=== PATIENT | female | born 1950 | race Caucasian/White ===

== ENCOUNTER 2016-04-05 13:15 | Outpatient (CLI) | payer BC | END 2016-04-05 13:16 | disposition home or self-care (01) | DX: Z12.31 Encounter for screening mammogram for malignant neoplasm of breast (principal) ==

== ENCOUNTER 2016-04-19 09:40 | Outpatient (CLI) | payer BC | END 2016-04-19 09:41 | disposition home or self-care (01) | DX: C73 Malignant neoplasm of thyroid gland (principal); E89.0 Postprocedural hypothyroidism; Z79.899 Other long term (current) drug therapy; E11.9 Type 2 diabetes mellitus without complications; Z00.00 Encounter for general adult medical examination without abnormal findings; Z12.11 Encounter for screening for malignant neoplasm of colon; Z12.12 Encounter for screening for malignant neoplasm of rectum ==

== ENCOUNTER 2016-05-13 11:30 | Outpatient (CLI) | payer BC | END 2016-05-13 11:31 | disposition home or self-care (01) | DX: N30.01 Acute cystitis with hematuria (principal) ==

== ENCOUNTER 2017-09-05 10:20 | Outpatient (CLI) | payer BC ==
[2017-09-05 10:43] LABS: BASOPHILS % (AUTO) 0.3 %; EOSINOPHILS # (AUTO) 0.1 10^3/uL (0.0-0.7); HGB - HEMOGLOBIN 14.5 g/dL (12.0-16.0); LYMPHOCYTES # (AUTO) 1.2 10^3/uL (1.5-3.5); LYMPHOCYTES % (AUTO) 26.7 %; MEAN CORPUSCULAR HEMOGLOBIN 30.9 pg (27.0-31.0); MEAN CORPUSCULAR HGB CONC 33.2 g/dL (32.0-36.0); MEAN CORPUSCULAR VOLUME 93.3 fL (81.0-99.0); MEAN PLATELET VOLUME 7.8 fL (7.9-10.8); MONOCYTES # (AUTO) 0.3 10^3/uL (0.0-1.0); MONOCYTES % (AUTO) 6.4 %; NEUTROPHILS # (AUTO) 2.9 10^3/uL (1.5-6.6); NEUTROPHILS % (AUTO) 64.6 %; PLT - PLATELET COUNT 164 10^3/uL (130-450); RED CELL DISTRIBUTION WIDTH 14.3 % (12.0-15.0); WHITE BLOOD COUNT 4.5 x10^3/uL (4.8-10.8)
[2017-09-05 10:59] LABS: HB2 TOTAL 16.4 g/dL; HEMOGLOBIN A1C 0.74 g/dL; HEMOGLOBIN A1C % 6.3 % (4.6-6.2)
[2017-09-05 11:03] LABS: ALBUMIN 4.1 g/dL (3.2-5.5); ALBUMIN/GLOBULIN RATIO 1.1 (1.0-2.2); ALKALINE PHOSPHATASE 83 IU/L (42-121); ALT ALANINE AMINOTRANSFERASE 29 IU/L (10-60); AST ASPARTATE AMINOTRANSFERASE 26 IU/L (10-42); BILIRUBIN,TOTAL 0.6 mg/dL (0.2-1.0); BUN - BLOOD UREA NITROGEN 17 mg/dL (6-20); CALCIUM 9.3 mg/dL (8.5-10.3); CARBON DIOXIDE - CO2 28 mmol/L (21-32); CHLORIDE 101 mmol/L (101-111); CHOL/HDL RATIO 3.7 (<4.4); CHOLESTEROL 207 mg/dL; CREATININE 0.8 mg/dL (0.4-1.0); GFR - MDRD 72 (>89); GLUCOSE 158 mg/dL (70-100); HDL CHOLESTEROL 56 mg/dL; LDL CHOLESTEROL,CALCULATED 124 mg/dL; LDL/HDL RATIO 2.2 (<4.4); SODIUM 137 mmol/L (135-145); VLDL CHOLESTEROL 27 mg/dL
[2017-09-05 11:16] LABS: THYROID STIMULATING HORMONE 6.05 uIU/mL (0.34-5.60)
[2017-09-05 11:18] LABS: FREE T4 (FREE THYROXINE) 0.64 ng/dL (0.58-1.64)
[2017-09-07 11:40] LABS: THYROGLOBULIN <0.1 ng/mL
== END 2017-09-05 10:21 | disposition home or self-care (01) ==
LOC: LAB 10:20
PROVIDERS: ATTEND Internal Medicine
DX: E11.9 Type 2 diabetes mellitus without complications (principal); C73 Malignant neoplasm of thyroid gland; E03.9 Hypothyroidism, unspecified; Z13.1 Encounter for screening for diabetes mellitus; Z79.899 Other long term (current) drug therapy
CPT/HCPCS: 36415; 80053; 80061; 82607; 83036; 83721; 84432; 84439; 84443; 84481; 85025; 86800

== ENCOUNTER 2017-09-20 13:53 | Outpatient (CLI) | payer BC ==
--- NOTE | 2017-09-22 13:29 | Mammography Report ---
Procedure Date: 09/20/2017 Accession Number: [id number] / [id number] Procedure: MGS - Screening Mammo Dig Bilat CPT Code: FULL RESULT: EXAM: Screening Mammo Dig Bilat DATE: 09/20/2017 2:08 PM CLINICAL HISTORY: 66-year-old nulliparous patient for screening, history of benign biopsy TECHNIQUE: Bilateral CC and MLO views were obtained. COMPARISON: 04/05/2016, 03/10/2015, 10/31/2008 FINDINGS: The breasts demonstrate scattered fibroglandular densities bilaterally. Coarse and punctate, typically benign calcifications are present. Small circumscribed nodules are stable. No suspicious masses, clustered microcalcifications, or regions of architectural distortion are identified. IMPRESSION: Benign findings RECOMMENDATION: Routine annual screening unless otherwise clinically indicated. BIRADS CATEGORY 2: Benign findings STANDARD QUALIFYING STATEMENTS: 1. This examination was reviewed with the aid of Computer-Aided Detection (CAD). 2. A negative or benign imaging report should not delay biopsy if clinically suspicious findings are present. Consider surgical consultation if warrented. More than 5% of cancers are not identified by imaging. 3. Dense breasts may obscure an underlying neoplasm.
== END 2017-09-20 13:54 | disposition home or self-care (01) ==
LOC: DI.S 13:53
PROVIDERS: ATTEND Internal Medicine
DX: Z12.31 Encounter for screening mammogram for malignant neoplasm of breast (principal)
CPT/HCPCS: 77067

== ENCOUNTER 2017-12-21 08:00 | Outpatient (CLI) | payer MEDICARE, BC | END 2017-12-21 08:01 | disposition home or self-care (01) | LOC: LAB.F 08:00 | PROVIDERS: ATTEND Internal Medicine | DX: E03.9 Hypothyroidism, unspecified (principal) | CPT/HCPCS: 36415; 84443 ==

== ENCOUNTER 2019-04-26 15:45 | Outpatient (CLI) | payer MEDICARE, BC ==
--- NOTE | 2019-05-08 15:52 | Mammography Report ---
Reason: ROUTINE MAMMO Procedure Date: 04/26/2019 Accession Number: [id number] / [id number] Procedure: SHIELA - Screening Mammo w/Iain CPT Code: Final Report FULL RESULT: EXAM: Screening Mammo w/Iain DATE: 04/26/2019 4:22 PM CLINICAL HISTORY: Screening encounter. History of nulliparity and early menses. History of benign left breast biopsy. TECHNIQUE: (B) - Bilateral CC and MLO views were obtained. COMPARISON: 09/20/2017 through 03/10/2015. PARENCHYMAL PATTERN: (A) - The breast(s) demonstrate(s) scattered fibroglandular densities. FINDINGS: There are no suspicious masses, calcifications, or areas of distortion. IMPRESSION: Negative examination. BI-RADS category 1. RECOMMENDATION: (ANNUAL) - Recommend routine annual screening mammography. BI-RADS CATEGORY: (1) - Negative. STANDARD QUALIFYING STATEMENTS: 1. This examination was not reviewed with the aid of Computer-Aided Detection (CAD). 2. A negative or benign imaging report should not preclude biopsy if clinically suspicious findings are present. 3. Dense breasts may obscure an underlying neoplasm. 4. This examination was reviewed with the aid of 3D breast imaging (tomosynthesis).
== END 2019-04-26 15:46 | disposition home or self-care (01) ==
LOC: DI 15:45
PROVIDERS: ATTEND Internal Medicine
DX: Z12.31 Encounter for screening mammogram for malignant neoplasm of breast (principal)
CPT/HCPCS: 77063; 77067

== ENCOUNTER 2022-01-19 09:41 | Outpatient (CLI) | payer MEDICARE, BC ==
[2022-01-19 14:12] LABS: BASOPHILS % (AUTO) 0.3 %; EOSINOPHILS # (AUTO) 0.1 10^3/uL (0.0-0.7); EOSINOPHILS % (AUTO) 2.5 %; HCT - HEMATOCRIT 49.3 % (37.0-47.0); HGB - HEMOGLOBIN 15.2 g/dL (12.0-16.0); LYMPHOCYTES # (AUTO) 1.6 10^3/uL (1.5-3.5); LYMPHOCYTES % (AUTO) 40.2 %; MEAN CORPUSCULAR HEMOGLOBIN 30.1 pg (27.0-31.0); MEAN CORPUSCULAR HGB CONC 30.8 g/dL (32.0-36.0); MEAN CORPUSCULAR VOLUME 97.6 fL (81.0-99.0); MEAN PLATELET VOLUME 10.4 fL (7.9-10.8); MONOCYTES # (AUTO) 0.3 10^3/uL (0.0-1.0); MONOCYTES % (AUTO) 6.8 %; NEUTROPHILS % (AUTO) 49.9 %; PLT - PLATELET COUNT 153 10^3/uL (130-450); RED BLOOD COUNT 5.05 10^6/uL (4.20-5.40); RED CELL DISTRIBUTION WIDTH 13.4 % (12.0-15.0)
[2022-01-19 14:42] LABS: ALBUMIN 4.1 g/dL (3.2-5.5); ALBUMIN/GLOBULIN RATIO 1.2 (1.0-2.2); ALKALINE PHOSPHATASE 76 IU/L (42-121); ALT ALANINE AMINOTRANSFERASE 24 IU/L (10-60); AST ASPARTATE AMINOTRANSFERASE 18 IU/L (10-42); BILIRUBIN,TOTAL 0.6 mg/dL (0.2-1.0); BUN - BLOOD UREA NITROGEN 17 mg/dL (6-20); CARBON DIOXIDE - CO2 29 mmol/L (21-32); CHLORIDE 101 mmol/L (101-111); CHOL/HDL RATIO 3.8 (<4.4); CHOLESTEROL 225 mg/dL; CREATININE 0.8 mg/dL (0.4-1.0); GFR - MDRD 71 (>89); GLUCOSE 216 mg/dL (70-100); HDL CHOLESTEROL 59 mg/dL; LDL CHOLESTEROL,CALCULATED 136 mg/dL; LDL/HDL RATIO 2.3 (<4.4); POTASSIUM 4.4 mmol/L (3.5-5.0); SODIUM 139 mmol/L (135-145); TOTAL PROTEIN 7.5 g/dL (6.7-8.2); TRIGLYCERIDES 152 mg/dL; VLDL CHOLESTEROL 30 mg/dL
[2022-01-19 14:52] LABS: THYROID STIMULATING HORMONE 2.55 uIU/mL (0.34-5.60)
[2022-01-19 16:17] LABS: ESTIMATED AVERAGE GLUCOSE 200 mg/dL (70-100); HEMOGLOBIN A1c% 8.6 % (4.27-6.07)
[2022-01-20 16:08] LABS: THYROGLOBULIN ANTIBODY <1.0 IU/mL (0.0-0.9); THYROID PEROXIDASE (TPO) AB 14 IU/mL (0-34)
== END 2022-01-19 09:42 | disposition home or self-care (01) ==
LOC: LAB.S 09:41
PROVIDERS: ATTEND Internal Medicine
DX: Z00.00 Encounter for general adult medical examination without abnormal findings (principal); E11.9 Type 2 diabetes mellitus without complications; R19.7 Diarrhea, unspecified; E03.9 Hypothyroidism, unspecified; C73 Malignant neoplasm of thyroid gland; Z13.6 Encounter for screening for cardiovascular disorders; Z79.899 Other long term (current) drug therapy
CPT/HCPCS: 36415; 80053; 80061; 82043; 82570; 82607; 83036; 83721; 84443; 85025; 86376; 86800

== ENCOUNTER 2022-01-20 13:30 | Outpatient (CLI) | payer MEDICARE, BC ==
[2022-01-20 20:47] LABS: CREATININE,URINE 165.8 mg/dL; MICROALBUM/CREATININE RATIO,UR 11.5 ug/mg (<30.0); MICROALBUMIN,URINE 1.9 mg/dL (0-300.0)
== END 2022-01-20 23:59 | disposition home or self-care (01) ==
LOC: LAB.R 13:30
PROVIDERS: ATTEND Internal Medicine
DX: Z00.00 Encounter for general adult medical examination without abnormal findings (principal); E11.9 Type 2 diabetes mellitus without complications; R19.7 Diarrhea, unspecified; E03.9 Hypothyroidism, unspecified; C73 Malignant neoplasm of thyroid gland; Z13.6 Encounter for screening for cardiovascular disorders; Z79.899 Other long term (current) drug therapy
CPT/HCPCS: 82043; 82570

== ENCOUNTER 2023-05-02 20:47 | Outpatient (CLI) | payer MEDICARE, BC | END 2023-05-02 20:48 | disposition home or self-care (01) | LOC: SC 20:47 | PROVIDERS: ATTEND Nurse Practitioner Family | DX: G47.33 Obstructive sleep apnea (adult) (pediatric) (principal); G47.61 Periodic limb movement disorder; E66.01 Morbid (severe) obesity due to excess calories; Z68.41 Body mass index [BMI] 40.0-44.9, adult; E11.9 Type 2 diabetes mellitus without complications; I10 Essential (primary) hypertension | CPT/HCPCS: 95810 ==

== ENCOUNTER 2023-05-10 14:06 | Outpatient (CLI) | payer MEDICARE, BC ==
--- NOTE | 2023-05-10 14:33 | Sleep Patient Instructions ---
Sleep Center Visit Summary - Patient Visit Information Reason for Visit: Sleep study follow-up - Patient Instructions Additional Instructions: You will be completing a titration sleep study in our sleep lab where you will be sleeping with the CPAP machine on and we will be adjusting your pressures to find your optimal pressure settings. Once we have your results back, we will call you and schedule a follow up to go over the results. You will be called by our office staff to schedule your follow up, but you may contact us with any questions or issue as needed. - Clinic Information Contact: [facility] [address] [place] [address] [email or web address] T: [phone]
--- NOTE | 2023-05-10 14:35 | SLEEP CARE CONSULTATION ---
Information from patient questionnaire entered by Madalyn Shafer. I have reviewed and concur with the information entered by Madalyn Shafer. This document represents the service I personally performed and the decisions made by , Lucie Ramsey ARNP. History of Present Illness Service Date and Time: 05/10/2023 1406 Initial [place] Sleepiness Scale score: 10 (01/05/23) Current [place] Sleepiness Scale score: 11 (05/10/23) Additional HPI information: KAREN BROWN returns for follow up and results of the recently performed polysomnography. The sleep study showed very severe obstructive sleep apnea with an average AHI of 71 and debra oxygen saturation of 62%. She had moderate PLMs which contributed to sleep fragmentation. I explained the pathophysiology behind obstructive sleep apnea. We then spent quite a bit of time discussing different treatment options. For mild obstructive sleep apnea, surgery and oral appliance are alternatives to nasal CPAP therapy but in moderate or severe cases, nasal CPAP is the most effective and reliable treatment. I reviewed the impact of weight changes on sleep apnea and strongly recommended losing weight. After some discussion, the patient opted to go with the nasal CPAP therapy. A manual titration study will be ordered to find optimal pressure with office adjustments. Patient was cautioned about risks of drowsy driving until sleepiness symptoms resolve. Sleep Study - Results Type of Sleep Study: Polysomnography (COMPLETED 05/02/23) Prior sleep studies: No Polysomnography/Home Sleep Study results: IMPRESSION: The quality of the study is good. The patient had reduced sleep efficiency. The sleep architecture was abnormal for sleep fragmentation and reduced amount of time spent in slow wave sleep (N3). Respiratory monitoring showed very severe obstructive sleep apnea-hypopnea (AHI = 71.0) associated with frequent arousals, oxyhemoglobin desaturation and moderate hypoxia (debra oxygen saturation of 62%). Baseline oxygen saturation was also low (average oxygen saturation = 87%). The respiratory events occurred independently of sleep stage and body position (supine AHI = 54.8; non-supine = 72.83). Snore was light to loud in intensity. There was moderate periodic leg movement of sleep contributing to the sleep fragmentation. Cardiac rhythm was normal sinus rhythm without significant arrhythmia. No abnormal behavior (parasomnia) observed during the night. Allergies and Home Medications Known drug allergies: No Drug allergies reviewed: Yes Home medication list reviewed: Yes (no changes) Allergy and home medication list: Allergies No Known Drug Allergies Allergy Review of Systems Review of systems same as previous: Yes (NO CHANGE) Physical Exam Vital signs obtained and entered by: MADALYN Cardona MA Blood Pressure: 168/100 (LEFT ARM) Cuff size: long Heart Rate: 76 O2 Saturation: 91 Height: 5 ft 11 in Weight: 330 lb 6.4 oz Body Mass Index: 46.0 BMI Classification: Morbidly Obese Impression and Plan 1. Obstructive Sleep Apnea-Hypopnea Syndrome, very severe, with lowest oxygen saturation of 62%. Obviously this is the cause of the patients symptoms of unrefreshed sleep, and excessive daytime sleepiness. Positive pressure therapy could benefit hypertension and diabetes. As mentioned above, the patient will be started on nasal autoCPAP therapy. A manual titration study will be completed to find optimal treatment pressure with office adjustments. Compliance guidelines also reviewed. Patient voiced understanding and agreement with plan of care. 2. Hypoxemia, moderate, with a debra oxygen saturation of 62% and 232 minutes spent under 90%. The baseline oxygen saturation was normal with a low average oxygen saturation of 87%. 3. Periodic limb movement, moderate, that did not fragment patients sleep. Periodic limb movement of sleep (PLMS) is characterized by episodes of repetitive limb movements that occur during sleep and usually involve the lower limbs. The etiology is unknown. Sleep hygiene methods can also improve sleep as well as lifestyle changes such as regular exercise. Patient was advised that no treatment is needed at this time. If symptoms increase, then further evaluation is indicated. 4. Obesity, unspecified. Currently patients BMI is 46. Obesity increases the r isk of apnea, CPAP pressure requirements and overall health risks especially cardiovascular and diabetes. Thus patient is advised to lose weight. * Titration study * Attempt to lose weight. * Avoid alcohol consumption near bedtime. * Avoid supine sleep until using CPAP. * The patient is again cautioned about driving until sleepiness completely resolves. * Return after titration study to be set up on PAP device. Counseling Topics: Weight loss health impact Follow up with Sleep Care in: other (after titration) Plan: Titration study Visit Type: In Office Time Spent with Patient (minutes): 21 Provider Statement: I spent 100% of the Face to Face Visit with the patient with greater than 50% spent counseling the patient and coordination of care.
[2023-05-10 14:36] VITALS: BP 168/100; O2SAT 91
== END 2023-05-10 14:07 | disposition home or self-care (01) ==
LOC: SC 14:06
PROVIDERS: ATTEND Nurse Practitioner Family
DX: G47.33 Obstructive sleep apnea (adult) (pediatric) (principal); E66.01 Morbid (severe) obesity due to excess calories; Z68.42 Body mass index [BMI] 45.0-49.9, adult; R09.02 Hypoxemia; G47.61 Periodic limb movement disorder; F51.9 Sleep disorder not due to a substance or known physiological condition, unspecified
CPT/HCPCS: 99213; G0463; 99212

== ENCOUNTER 2023-05-27 09:54 | Outpatient (CLI) | payer MEDICARE, BC ==
[2023-05-27 14:57] LABS: BASOPHILS % (AUTO) 0.2 %; EOSINOPHILS # (AUTO) 0.2 10^3/uL (0.0-0.7); EOSINOPHILS % (AUTO) 3.4 %; HCT - HEMATOCRIT 47.9 % (37.0-47.0); HGB - HEMOGLOBIN 15.1 g/dL (12.0-16.0); LYMPHOCYTES # (AUTO) 1.3 10^3/uL (1.5-3.5); MEAN CORPUSCULAR HEMOGLOBIN 29.8 pg (27.0-31.0); MEAN CORPUSCULAR HGB CONC 31.5 g/dL (32.0-36.0); MEAN CORPUSCULAR VOLUME 94.7 fL (81.0-99.0); MEAN PLATELET VOLUME 10.2 fL (7.9-10.8); MONOCYTES # (AUTO) 0.3 10^3/uL (0.0-1.0); MONOCYTES % (AUTO) 6.2 %; NEUTROPHILS # (AUTO) 2.9 10^3/uL (1.5-6.6); PLT - PLATELET COUNT 152 10^3/uL (130-450); RED BLOOD COUNT 5.06 10^6/uL (4.20-5.40); RED CELL DISTRIBUTION WIDTH 13.5 % (12.0-15.0); WHITE BLOOD COUNT 4.7 x10^3/uL (4.8-10.8)
[2023-05-27 16:06] LABS: THYROID STIMULATING HORMONE 3.86 uIU/mL (0.34-5.60)
[2023-05-27 16:17] LABS: ALBUMIN 4.1 g/dL (3.2-5.5); ALBUMIN/GLOBULIN RATIO 1.5 (1.0-2.2); ALKALINE PHOSPHATASE 79 IU/L (42-121); ALT ALANINE AMINOTRANSFERASE 12 IU/L (10-60); AST ASPARTATE AMINOTRANSFERASE 12 IU/L (10-42); BILIRUBIN,TOTAL 0.6 mg/dL (0.2-1.0); BUN - BLOOD UREA NITROGEN 21 mg/dL (6-20); CALCIUM 9.4 mg/dL (8.5-10.3); CARBON DIOXIDE - CO2 31 mmol/L (21-32); CHLORIDE 104 mmol/L (101-111); CHOL/HDL RATIO 2.4 (<4.4); CHOLESTEROL 134 mg/dL; CREATININE 0.7 mg/dL (0.6-1.3); GFR - MDRD 83 (>89); GLUCOSE 154 mg/dL (74-104); HDL CHOLESTEROL 57 mg/dL; LDL CHOLESTEROL,CALCULATED 65 mg/dL; LDL/HDL RATIO 1.1 (<4.4); POTASSIUM 4.4 mmol/L (3.5-4.5); SODIUM 141 mmol/L (135-145); TOTAL PROTEIN 6.9 g/dL (6.4-8.9); TRIGLYCERIDES 61 mg/dL (48-352); VLDL CHOLESTEROL 12 mg/dL
[2023-05-27 21:28] LABS: ESTIMATED AVERAGE GLUCOSE 134 mg/dL (70-100); HEMOGLOBIN A1c% 6.3 % (4.27-6.07)
[2023-05-28 22:07] LABS: THYROGLOBULIN ANTIBODY <1.0 IU/mL (0.0-0.9); THYROGLOBULIN BY IMA 0.1 ng/mL (1.5-38.5)
== END 2023-05-27 09:55 | disposition home or self-care (01) ==
LOC: LAB.S 09:54
PROVIDERS: ATTEND Internal Medicine
DX: Z00.00 Encounter for general adult medical examination without abnormal findings (principal); E11.9 Type 2 diabetes mellitus without complications; I10 Essential (primary) hypertension; E03.9 Hypothyroidism, unspecified; G47.30 Sleep apnea, unspecified; C73 Malignant neoplasm of thyroid gland
CPT/HCPCS: 36415; 80053; 80061; 82043; 82570; 82607; 83036; 83721; 84439; 84443; 84481; 85025; 86800

== ENCOUNTER 2023-06-04 20:28 | Outpatient (CLI) | payer MEDICARE, BC | END 2023-06-04 20:29 | disposition home or self-care (01) | LOC: SC 20:28 | PROVIDERS: ATTEND Nurse Practitioner Family | DX: G47.33 Obstructive sleep apnea (adult) (pediatric) (principal); G47.61 Periodic limb movement disorder | CPT/HCPCS: 95811 ==

== ENCOUNTER 2023-06-06 13:59 | Outpatient (CLI) | payer MEDICARE, BC ==
--- NOTE | 2023-06-07 10:33 | Mammography Report ---
BILATERAL DIGITAL SCREENING MAMMOGRAM 3D/2D: 06/06/2023 CLINICAL: Routine screening. Family history of breast cancer. Comparison is made to exams dated: 12/24/2021 mammogram, 04/26/2019 mammogram, and 09/20/2017 mammogram - [facility]. There are scattered areas of fibroglandular density in both breasts (category b / 25%-50% glandular t issue). No significant masses, calcifications, or other findings are seen in either breast. There has been no significant interval change. IMPRESSION: NEGATIVE There is no mammographic evidence of malignancy. A 1 year screening mammogram is recommended. Based on the Tyrer Cuzick model (a risk assessment model) the patient's lifetime risk is 6.0% and her 10 year risk is 3.8%. According to the ACR, ACS, and NCCN guidelines, an annual breast MRI exam roxann g with mammogram is recommended if the patient's lifetime risk is 20% or greater. This exam was interpreted at Station ID: [id number]. NOTE: For mammograms, a report in lay terms will be sent to the patient. Approximately 15% of breast malignancies will not be visualized mammographically. In the management of a palpable breast mass, a negative mammogram must not discourage biopsy of a clinically suspicious lesion. Electronically Signed By: Juan A harper/whitney:06/06/2023 19:05:49 letter sent: No_Letter ACR BI-RADS Category 1: Negative 3341F PARENCHYMAL PATTERN: (A) - The breast(s) demonstrate(s) scattered fibroglandular densities. BI-RADS CATEGORY: (1) - 1 RECOMMENDATION: (ANNUAL) - Recommend routine annual screening mammography. [id number] 1 year screening LATERALITY: (B)
== END 2023-06-06 14:00 | disposition home or self-care (01) ==
LOC: DI.S 13:59
PROVIDERS: ATTEND Internal Medicine
DX: Z12.31 Encounter for screening mammogram for malignant neoplasm of breast (principal); Z80.3 Family history of malignant neoplasm of breast; R92.323 Mammographic fibroglandular density, bilateral breasts

== ENCOUNTER 2023-06-15 11:31 | Outpatient (CLI) | payer MEDICARE, BC ==
--- NOTE | 2023-06-15 11:33 | SLEEP CARE CONSULTATION ---
Information from patient questionnaire entered by Madalyn Shafer. I have reviewed and concur with the information entered by Madalyn Shafer. This document represents the service I personally performed and the decisions made by , Lucie Ramsey ARNP. History of Present Illness Service Date and Time: 06/15/2023 1120 Initial [place] Sleepiness Scale score: 10 (01/05/23) Current [place] Sleepiness Scale score: 11 (06/15/23) Additional HPI information: KAREN BROWN returns via video appointment for follow up of the sleep study with a manual CPAP titration study performed on 06/04/23. Previous study done on 05/02/23 showed very severe obstructive sleep apnea with AHI 71. The patient was informed of the following polysomnography findings: CPAP was initiated at 6 cmH2O and titrated up to 20 cmH2O. CPAP at 12 cmH2O appeared to be optimal (AHI of 0 per hour on the pressure). There was supine sleep on the pressure. Oxygen saturation was moderately low due to low baseline oxygen saturation. Lower CPAP settings appeared adequate as well. The patient appeared to have tolerated positive airway pressure therapy fairly well. I explained how CPAP machine works and what to expect when using the machine. Using CPAP every night in order to get used to it was emphasized. Patient advised to put CPAP mask on before getting into bed so as not to fall asleep without CPAP. To assist acclimation to CPAP use, it could also be used for a short time during day while reading or watching TV. The patient was instructed to call the CPAP supplier to discuss any mechanical problem that may occur. If the mask given is uncomfortable or is difficult to keep on through the night even with adjustment, contact the CPAP supplier as many will replace with another mask style if notified before 30 days. If snoring or perceives is not getting enough air or too much air from the machine, notify this office. Patient counseled not drink alcohol less than 4 hours before bedtime as it can increase snoring and apnea. Patient was cautioned about risks of drowsy driving until sleepiness symptoms resolve. Patient denies drowsy driving. Sleep Study - Results Type of Sleep Study: Polysomnography (COMPLETED 05/02/23 TITRATION COMPLETED 06/05/23) Prior sleep studies: No Polysomnography/Home Sleep Study results: IMPRESSION: The quality of the study is good. CPAP was initiated at 6 cmH2O and titrated up to 20 cmH2O. CPAP at 12 cmH2O appeared to be optimal (AHI of 0 per hour on the pressure). There was supine sleep on the pressure. Oxygen saturation was moderately low due to low baseline oxygen saturation. Lower CPAP settings appeared adequate as well. The patient appeared to have tolerated positive airway pressure therapy fairly well. The patients sleep efficiency was reduced due sleep onset insomnia and 2 prolonged awakenings during the night. The sleep architecture was normal. There was severe periodic leg movement of sleep not associated with sleep fragmentation. Cardiac rhythm was normal sinus rhythm without significant arrhythmia. No abnormal behavior (parasomnia) observed during the night. Allergies and Home Medications Known drug allergies: No Drug allergies reviewed: Yes Home medication list reviewed: Yes (no changes) Allergy and home medication list: Allergies No Known Drug Allergies Allergy (Verified 06/14/23 16:14) Review of Systems Review of systems same as previous: Yes (NO CHANGE) Physical Exam Vital signs obtained and entered by: MADALYN Cardona MA Height: 5 ft 10 in (PER PT) Weight: 320 lb (PER PT) Body Mass Index: 45.9 BMI Classification: Morbidly Obese Impression and Plan 1. Obstructive Sleep Apnea-Hypopnea Syndrome, very severe, with lowest oxygen saturation of 71%. Positive pressure therapy could benefit hypertension and diabetes. She returns after titration study which showed optimal pressure to be 12 cmH2O, 8-12 cmH2O is also appropriate. The patient will be started on nasal autoCPAP therapy with pressure set at cmH2O. Compliance guidelines also reviewed. A copy of compliance guidelines will be given for reference at check out. 2. Hypoxemia, mild, with a debra oxygen saturation of 71% and 140.6 minutes spent under 90%. The baseline oxygen saturation was normal with an average oxygen saturation of 88%. Patient informed that further evaluation of hypoxemia is recommended. They may consider underlying cardiopulmonary disorders, including obesity hypoventilation. It was noted that oxygen supplement appears to be indicated. After some discussion, patient would prefer to follow up with h er PCP before initiating any oxygen therapy for further evaluation. 3. Periodic limb movement, severe, that did not fragment patients sleep. Periodic limb movement of sleep (PLMS) is characterized by episodes of repetitive limb movements that occur during sleep and usually involve the lower limbs. The etiology is unknown. Sleep hygiene methods can also improve sleep as well as lifestyle changes such as regular exercise. Patient was advised that no treatment is needed at this time. If symptoms increase, then further evaluation is indicated. 4. Obesity, unspecified. Currently patients BMI is 45.9. Obesity increases the risk of apnea, CPAP pressure requirements and overall health risks especially cardiovascular and diabetes. Thus patient is advised to lose weight. * Nasal auto CPAP therapy, pressure at 8-12 cm H2O. * Follow up with PCP for further evaluation of mild hypoxemia * Attempt to lose weight. * Avoid alcohol consumption near bedtime. * Avoid supine sleep until using CPAP. * The patient is again cautioned about driving until sleepiness completely resolves. * Return one month after CPAP obtained. I will assess response to therapy and compliance at that time. Counseling Topics: Weight loss health impact Prescriptions: Auto CPAP Follow up with Sleep Care in: other (Compliance follow up) Follow up with: PCP Follow up recommended for: Hypoxia Visit Type: Telehealth Video Video Type: Doximity Patient Location: Home Location of Provider: Office Patient agrees and consents to this telehealth visit type: Yes Time Spent with Patient (minutes): 32 Provider Statement: I spent 100% of the Telehealth Video Call with the patient with greater than 50% spent counseling the patient and coordination of care.
== END 2023-06-15 11:32 | disposition home or self-care (01) ==
LOC: SC 11:31
PROVIDERS: ATTEND Nurse Practitioner Family
DX: G47.33 Obstructive sleep apnea (adult) (pediatric) (principal); E66.01 Morbid (severe) obesity due to excess calories; Z68.42 Body mass index [BMI] 45.0-49.9, adult

== ENCOUNTER 2023-08-11 14:00 | Outpatient (CLI) | payer MEDICARE, BC ==
--- NOTE | 2023-08-11 14:42 | Sleep Patient Instructions ---
Sleep Center Visit Summary - Patient Visit Information Reason for Visit: First Compliance follow up - Patient Instructions Additional Instructions: You were here for follow up of CPAP therapy. You will be continued on CPAP therapy with pressure at 8-12 cmH2O. You should follow up with sleep care in 3 months. You may contact us sooner for any questions or concerns. - Clinic Information Contact: [facility] [address] [place] [address] [email or web address] T: [phone]
--- NOTE | 2023-08-11 14:45 | SLEEP CARE CONSULTATION ---
Information from patient questionnaire entered by Dale Shafer. I have reviewed and concur with the information entered by Dale Shafer. This document represents the service I personally performed and the decisions made by , Lucie Ramsey ARNP. History of Present Illness Service Date and Time: 08/11/20231399 Previous diagnosis: Very Severe, Obstructive Sleep Apnea-Hypopnea Syndrome AHI: 71 (05/02/23) Reason for follow up: first compliance Equipment type: CPAP (RESMED Airsense 11; S/U 06/17/23) Equipment obtained from: [facility] (getting supplies) Mask style: Full face Mask brand: [employer] Real-Time (Vitera, medium cushion) Backup mask available: No (will keep old mask when replaced) Last cushion change: 1 month Prior sleep studies: No Type of Sleep Study: Polysomnography (COMPLETED 05/02/23 TITRATION COMPLETED 06/05/23) HPI additional information: KAREN BROWN was diagnosed to have very severe, AHI 71, obstructive sleep apnea-hypopnea syndrome and returned today for CPAP therapy first compliance follow-up. Sleep Study - Results Type of Sleep Study: Polysomnography (COMPLETED 05/02/23 TITRATION COMPLETED 06/05/23) Prior sleep studies: No CPAP Compliance Data - Data Reviewed with Patient Average duration of nightly device use: 7 HRS 20 MINS Compliance rate %: 100 (06/17/23-07/16/23; 30/ days used) Current pressure setting (cmH2O): 8-12 Average residual AHI: 1.5 Central apnea: 0 Obstructive apnea: 0.3 Hypopnea: 1.2 Average large leak: 3.9 L/min Subjective Patient concerns: reports: mask discomfort (eyes puffy in morning), dry mouth, nose, throat. denies: aerophagia, air blowing in eyes, mask leak noise, condens ation in mask/hose, nasal congestion, epistaxis Observed to snore while using device: No Current pressure setting perceived as: comfortable On therapy, patient: reports: sleeping better, awakening more refreshed, being more awake and alert during the day, more rested overall. denies: drowsiness while driving Initial [place] Sleepiness Scale score: 10 (01/05/23) Current [place] Sleepiness Scale score: 7 (08/11/23) Allergies and Home Medications Known drug allergies: No Drug allergies reviewed: Yes Home medication list reviewed: Yes (no changes) Allergy and home medication list: Allergies No Known Drug Allergies Allergy (Verified 08/08/23 13:58) Review of Systems Review of systems same as previous: Yes (NO CHANGE) Physical Exam Vital signs obtained and entered by: DALE Cardona MA Blood Pressure: 132/80 (RIGHT ARM) Cuff size: long Heart Rate: 81 O2 Saturation: 97 Height: 5 ft 10 in (PER PT) Weight: 325 lb 6.4 oz Body Mass Index: 46.7 BMI Classification: Morbidly Obese Impression and Plan 1. Obstructive Sleep Apnea-Hypopnea Syndrome, very severe, with good treatment compliance and good apnea control. On CPAP therapy, the patient has better sleep quality and is more rested overall. She says she is getting used to the CPAP and has noticed an improvement of her symptoms. She has significant improvement of her sleep apnea and feels the pressure is comfortable at the current settings. She gets some occasional dry mouth but is probably oral venting under the mask. We discussed ways of keeping her mouth closed including a chinstrap or snoring strips over her mouth. She voiced understanding. Patient's apnea severity and rationale for treatment to reduce apnea, improve sleep quality and reduce cardiovascular and cerebrovascular events was reviewed. I also reviewed the benefit of consistent device use of CPAP for hypertension, diabetes. 2. Obesity, unspecified. Currently patients BMI is 46.7. Obesity increases the risk of apnea, CPAP pressure requirements and overall health risks especially cardiovascular and diabetes. Thus patient is advised to lose weight. * Continue auto CPAP pressure at 8-12 cmH2O * Notify me if snoring with mask or feeling that the pressure is too much or too little * Attempt to lose weight * Call this office if any problems using CPAP * Return for follow up in 3 months, or sooner if concerns arise Counseling Topics: Spare mask, Weight loss health impact Follow up with Sleep Care in: 3 months Visit Type: In Office Time Spent with Patient (minutes): 20 Provider Statement: I spent 100% of the Face to Face Visit with the patient with greater than 50% spent counseling the patient and coordination of care.
[2023-08-11 14:49] VITALS: BP 132/80; O2SAT 97
== END 2023-08-11 14:01 | disposition home or self-care (01) ==
LOC: SC 14:00
PROVIDERS: ATTEND Nurse Practitioner Family
DX: G47.33 Obstructive sleep apnea (adult) (pediatric) (principal); E66.01 Morbid (severe) obesity due to excess calories; Z68.42 Body mass index [BMI] 45.0-49.9, adult
CPT/HCPCS: 99213; G0463; 99212

== ENCOUNTER 2023-11-14 12:19 | Outpatient (CLI) | payer MEDICARE, BC ==
--- NOTE | 2023-11-15 21:47 | SLEEP CARE CONSULTATION ---
Information from patient questionnaire entered by nAdrea Boudreaux. I have reviewed and concur with the information entered by Andrae Boudreaux. This document represents the service I personally performed and the decisions made by me, Patricia Owens MD, [facility]. History of Present Illness Service Date and Time: 11/14/2023 1219 Previous diagnosis: Very Severe, Obstructive Sleep Apnea-Hypopnea Syndrome AHI: 71 (05/02/23) Reason for follow up: three month Equipment type: CPAP (RESMED Airsense 11; S/U 06/17/23) Equipment obtained from: [employer] ([employer]) Mask style: Full face Prior sleep studies: No Type of Sleep Study: Polysomnography (COMPLETED 05/02/23 TITRATION COMPLETED 06/05/23) HPI additional information: HPI: Ms. Butterfield was called by telephone today for a 3-month follow up of nasal CPAP therapy. She was diagnosed with severe obstructive sleep apnea-hypopnea syndrome. The patient went to [facility] for the equipment and was fitted with a full face mask. She reports using the [employer]Med AirSense 11 nightly and all through the night. The compliance report shows usage in 90 nights out of the past 90 nights, averaging 7.4 hours a night. She complained of air blowing into her eyes. She says the exhaust hits her pillow and comes back to her face. She now wears an eye mask. She thinks that the pressure of 8 - 12 cmH2O is comfortable. On the CPAP therapy she notices improvement in her sleep quality, and that she wakes up feeling fresher in the morning and more awake/alert during the day. The average residual AHI is 2.5; and air leak, 3.6 L/min. The 90th percentile pressure is 12 cmH2O. Sleep Study - Results Type of Sleep Study: Polysomnography (COMPLETED 05/02/23 TITRATION COMPLETED 06/05/23) Prior sleep studies: No CPAP Compliance Data - Data Reviewed with Patient Average duration of nightly device use: 7 h 26 min Compliance rate %: 99 Current pressure setting (cmH2O): 8-12 Average residual AHI: 2.5 Subjective Patient concerns: reports: air blowing in eyes, nasal congestion (Probably from allergies), dry mouth, nose, throat Current pressure setting perceived as: comfortable Initial [place] Sleepiness Scale score: 10 (01/05/23) Current [place] Sleepiness Scale score: 6 (11/14/23) Allergies and Home Medications Drug allergies reviewed: Yes Home medication list reviewed: Yes Allergy and home medication list: Allergies No Known Drug Allergies Allergy (Verified 08/11/23 14:07) Review of Systems Review of systems same as previous: Yes Physical Exam Vital signs obtained and entered by: N/A Height: 5 ft 10 in (PER PT) Weight: 319 lb 15.663 oz (PER PT) Body Mass Index: 45.9 BMI Classification: Morbidly Obese Impression and Plan IMPRESSION: 1. Obstructive Sleep Apnea-Hypopnea Syndrome, severe (AHI was 71.0) with the patient doing well on nasal CPAP therapy. She has excellent compliance and significant clinical improvement. The current pressure appears effective and comfortable. Overall, she is very satisfied with treatment and plans to continue with it long-term. No adjustment is necessary today. PLAN: 1. Continue with nasal CPAP therapy with 8 - 12 cmH2O. 2. Consider a different mask that does not blow air into her eyes (she wants to stay with the same mask for now). 3. Return in one year for follow up or earlier if there is any problem with the treatment. Follow up with Sleep Care in: 1 year Visit Type: Telehealth Phone Patient Location: Home Location of Provider: Office Patient agrees and consents to this telehealth visit type: Yes Patient agrees to have their insurance billed: Yes Time Spent with Patient (minutes): 15 Provider Statement: I spent 100% of the Telehealth Phone Call with the patient with greater than 50% spent counseling the patient and coordination of care.
== END 2023-11-14 12:20 | disposition home or self-care (01) ==
LOC: SC 12:19
PROVIDERS: ATTEND Internal Medicine Pulmonary Disease
DX: G47.33 Obstructive sleep apnea (adult) (pediatric) (principal); E66.01 Morbid (severe) obesity due to excess calories; Z68.42 Body mass index [BMI] 45.0-49.9, adult
CPT/HCPCS: 99441